=== PATIENT | male | born 1970 | race Caucasian/White ===

== ENCOUNTER → 2016-12-31 | Outpatient (CLI) | payer MEDICAID ==
[~2016-12-31] MED LIST: ALPRAZOLAM0.25 M2 PO; ASPIR-LOW81 MG PO; BUPROPION HCL75 M1 PO; CIPROFLOXACIN500 M2 PO; FLEXERIL10 MG PO; IBU400 MG PO; LISINOPRIL10 MG PO; METOPROLOL SUCC50 M1 PO; NAPROSYN 500MG500 MG PO; NEURONTIN 300M300 MG PO; NOMEDS XX; OXAZEPAM 10MG C10 M1 PO; SEPTRA DS 800 M1 TAB PO; SEROQUEL50 MG PO; TRAMADOL 50MG T1 PAK PO; TRAMADOL 50MG T50 MG PO
[2016-12-31 15:31] LABS: AMPHETAMINES/METAMPHETAMINES NEGATIVE ng/mL (<1000)
== END ==
LOC: LAB 14:29
PROVIDERS: Nurse Practitioner Family
DX: Z79.899 Other long term (current) drug therapy (principal)